=== PATIENT | female | born 1960 | race Caucasian/White ===

== ENCOUNTER 2017-05-29 16:34 | Emergency (ER) | payer SELFPAY ==
[2017-05-29 16:38] VITALS: BP 148/99
--- NOTE | 2017-05-29 17:08 | UC ---
Abdominal Pain Female HPI - HPI Summary HPI Summary: Abdominal pain, cramping, gas, discomfort, frequent very small loose/formed stools starting 3 nights ago. had similar symptoms starting 2 days before pt, but his symptoms resolved within about 48 hours. Pt is just concerned that her recovered quickly and her symptoms are persistent. Has nausea without vomiting but eating helps her belly sx. No blood in stool, denies urinary or vaginal symptoms. Has some low back pain with radiation down the legs. - History of Current Complaint Hx Obtained From: Patient ?: No Onset/Duration: Sudden Onset, Lasting Days Timing: Constant Severity Initially: Moderate Severity Currently: Moderate Location: Diffuse Radiates: Yes Radiates to: Back Character: Aching, Cramping Aggravating Factor(s): Nothing Alleviating Factor(s): Bowel Movement, Other: - eating/drinking Associated Signs and Symptoms: Positive: Decreased Appetite, Nausea. Negative: Diaphoresis, Fever, Cough, Constipation, Blood in Stool, Urinary Symptoms, Vaginal Bleeding, Vomiting <Maggie Lara - Last Filed: 05/29/17 17:03> <Jayda Martinez - Last Filed: 05/29/17 17:44> - History of Current Complaint Chief Complaint: UCGI Stated Complaint: GASTRIC/GAS Time Seen by Provider: 05/29/17 16:43 Allergies/Adverse Reactions: Allergies Allergy/AdvReac Type Severity Reaction Status Date / Time Penicillins Allergy Rash Verified 05/29/17 16:39 PMH/Surg Hx/FS Hx/Imm Hx Previously Healthy: Yes - Surgical History Surgical History: None - Family History Known Family History: Positive: Hypertension - Social History Lives: With Family Alcohol Use: None Substance Use Type: None Smoking Status (MU): Never Smoked Tobacco <Maggie Lara - Last Filed: 05/29/17 17:03> Review of Systems Constitutional: Negative Skin: Negative Eyes: Negative ENT: Negative Respiratory: Negative Cardiovascular: Negative Gastrointestinal: Abdominal Pain, Diarrhea, Nausea Genitourinary: Negative Motor: Negative Neurovascular: Negative Musculoskeletal: Negative Neurological: Negative Psychological: Negative All Other Systems Reviewed And Are Negative: Yes <Maggie Lara - Last Filed: 05/29/17 17:03> Physical Exam Triage Information Reviewed: Yes Appearance: Well-Appearing, No Pain Distress, Well-Nourished Vital Signs: Initial Vital Signs Temp 98.7 F 05/29/17 16:35 Pulse 81 05/29/17 16:35 Resp 12 05/29/17 16:35 BP 148/99 05/29/17 16:35 Pulse Ox 100 05/29/17 16:35 Vital Signs Reviewed: Yes Eye Exam: Normal, Other - PERRL Eyes: Positive: Conjunctiva Clear ENT Exam: Normal ENT: Positive: Normal ENT inspection, Hearing grossly normal, Pharynx normal, TMs normal Dental Exam: Normal Dental: Negative: Gross Decay/Caries @, Abscess @ Neck exam: Normal Neck: Positive: Supple, Nontender, No Lymphadenopathy Respiratory Exam: Normal Respiratory: Positive: Chest non-tender, Lungs clear, Normal breath sounds, No respiratory distress, No accessory muscle use Cardiovascular Exam: Normal Cardiovascular: Positive: RRR, No Murmur Abdomen Description: Positive: Nontender, No Organomegaly, Soft. Negative: Bruit, CVA Tenderness (R), CVA Tenderness (L), Hepatomegaly, McBurney's Point Tenderness, Peritoneal Signs Musculoskeletal Exam: Normal Neurological Exam: Normal Neurological: Positive: Alert Psychological Exam: Normal Skin Exam: Normal <Maggie Lara - Last Filed: 05/29/17 17:03> Vital Signs: Initial Vital Signs Temp 98.7 F 05/29/17 16:35 Pulse 81 05/29/17 16:35 Resp 12 05/29/17 16:35 BP 148/99 05/29/17 16:35 Pulse Ox 100 05/29/17 16:35 <Jayda Martinez - Last Filed: 05/29/17 17:44> Abd Pain Female Course/Dx - Differential Dx/Diagnosis Provider Diagnoses: Acute enteritis <Maggie Lara - Last Filed: 05/29/17 17:03> Discharge <Maggie Lara - Last Filed: 05/29/17 17:03> <Jayda Martinez - Last Filed: 05/29/17 17:44> - Discharge Plan Condition: Stable Disposition: HOME Prescriptions: Dicyclomine CAP* [Bentyl CAP*] 10 mg PO TID PRN #12 cap PRN Reason: cramping Patient Education Materials: Acute Diarrhea (ED) Additional Instructions: As we discussed, I do not see any "red flags" in your symptoms or on exam. I expect your stomach cramping and bloating to normalize within the next 2-3 days (it may take another couple days for your bowel habits to normalize as well), as this is most likely a GI virus. If symptoms persist or worsen, please fill the specimen containers and return to the lab for further testing. If you have fever, worsening pain, pain focused in one area of the belly, bloody stools, or fainting, please go to the emergency department right away. Attestation Statement User Type: Provider - I was available for consult. This patient was seen by the TYRESE. The patient was not presented to, seen by, or examined by me. -Aye <Jayda Martinez - Last Filed: 05/29/17 17:44>
== END 2017-05-29 17:18 | disposition home or self-care (01) ==
LOC: MERGE 16:34 → UCEAST 16:34
DX: K52.9 Noninfective gastroenteritis and colitis, unspecified (principal); Z88.0 Allergy status to penicillin
CPT/HCPCS: 99202; G0463

== ENCOUNTER 2018-06-11 13:40 | Inpatient (IN) | payer OTHER ==
[2018-06-11] MEDS ORDERED: NS 0.9% 1000 ML* 1,000 ML IV ONE (13:58)
[2018-06-11] MEDS ORDERED: Ondansetron ODT TAB* 4 MG PO ONE (13:58)
[2018-06-11] MEDS ORDERED: Morphine VIAL* 10 MG/ML 1 ML VIAL IV ONE (13:58)
[2018-06-11] MEDS ORDERED: ceFAZolin 1 GM in Dextrose (*) 1 GM/50 ML BAG IVPB ONE ×2 (13:58→18:59)
--- NOTE | 2018-06-11 13:58 | ED ---
Lower Extremity - HPI Summary HPI Summary: Pt is a 58 y/o F BIBA c/o RLE pain onset ~1349 this date. Pain is rated a 2/10 and described as an ache, per triage. Assoc. Sx: RLE pain, decreased. Denies: fever. She reports falling backwards down 2 stairs and landed on R leg wrong. Allev. Sx: Pulling knee towards body. She notes having eaten breakfast this AM. Aggr. factors: movement of RLE. Allev. factors: compression of RLE. - History of Current Complaint Chief Complaint: EDExtremityLower Stated Complaint: RT ANKLE Time Seen by Provider: 06/11/18 13:49 Hx Obtained From: Patient Mechanism Of Injury: Fall From Height Of: - 2 stairs Onset of Pain: Immediate Onset/Duration: Still Present Severity Currently: Mild Pain Intensity: 2 Pain Scale Used: 0-10 Numeric Timing: Constant Associated Signs And Symptoms: Positive: Other - POS: RLE pain. Negative: Fever Aggravating Factor(s): Movement Alleviating Factor(s): Other - compression Able to Bear Weight: No - Allergies/Home Medications Allergies/Adverse Reactions: Allergies Allergy/AdvReac Type Severity Reaction Status Date / Time MS Penicillins [Penicillins] Allergy Rash Verified 05/29/17 16:39 PMH/Surg Hx/FS Hx/Imm Hx Endocrine/Hematology History: Denies: Hx Diabetes Cardiovascular History: Denies: Hx Coronary Artery Disease, Hx Hypertension Infectious Disease History: No Infectious Disease History: Denies: Traveled Outside the [place] in Last 30 Days - Family History Known Family History: Positive: Hypertension, Diabetes Negative: Cardiac Disease - Social History Occupation: Employed Full-time Lives: With Family Alcohol Use: Occasionally Substance Use Type: Reports: None Hx Tobacco Use: No Smoking Status (MU): Never Smoked Tobacco Review of Systems Negative: Fever, Chills, Fatigue, Skin Diaphoresis Negative: Photophobia, Blurred Vision, Diplopia, Drainage, Erythema Negative: Epistaxis, Dental Pain, Sore Throat, Ear Ache, Nasal Discharge Negative: Palpitations, Chest Pain Negative: Shortness Of Breath, Cough Negative: Abdominal Pain, Vomiting, Diarrhea, Nausea Negative: burning, dysuria, discharge, frequency, flank pain, hematuria, incontinence, pain, urgency Positive: Decreased ROM - RLE, Other - POS: RLE pain. Negative: Arthralgia, Myalgia, Edema Negative: Rash, Bruising Negative: Headache, Weakness, Paresthesia, Numbness, Slurred Speech Negative: Anxious, Depressed All Other Systems Reviewed And Are Negative: Yes Physical Exam - Summary Physical Exam Summary: Constitutional: Well-developed, Well-nourished, Alert. (-) Distressed Skin: Warm, Dry HENT: Normocephalic; Atraumatic Eyes: Conjunctiva normal Neck: Musculoskeletal ROM normal neck. (-) JVD, (-) Stridor, (-) Tracheal deviation Cardio: Rhythm regular, rate normal, Heart sounds normal; Intact distal pulses; The pedal pulses are 2+ and symmetric. Radial pulses are 2+ and symmetric. (-) Murmur Pulmonary/Chest wall: Effort normal. (-) Respiratory distress, (-) Wheezes, (-) Rales Abd: Soft, (-) epigastric tenderness, (-) Distension, (-) Guarding, (-) Rebound Musculoskeletal: (-) Edema Lymph: (-) Cervical adenopathy Neuro: Alert, Oriented x3 Psych: Mood and affect Normal RLE: medially angulated, medial malleolus open. Triage Information Reviewed: Yes Vital Signs On Initial Exam: Initial Vitals Temp Pulse Resp BP Pulse Ox 98.3 F 68 16 114/72 100 06/11/18 13:47 06/11/18 13:47 06/11/18 13:47 06/11/18 13:47 06/11/18 13:47 Vital Signs Reviewed: Yes Diagnostics - Vital Signs Vital Signs Temp Pulse Resp BP Pulse Ox 06/11/18 13:47 98.3 F 68 16 114/72 100 - Laboratory Result Diagrams: 06/11/18 14:00 06/11/18 14:00 Lab Statement: Any lab studies that have been ordered have been reviewed, and results considered in the medical decision making process. - Radiology Knee XR Xray Interpretation: No Acute Changes - IMPRESSION: No radiographic evidence for traumatic RIGHT knee injury. Radiology Interpretation Completed By: Radiologist - Report has been reviewed by provider and radiologist. - EKG 1408 Cardiac Rate: NL - 65 bpm EKG Rhythm: Sinus Rhythm ST Segment: Normal Ectopy: None Discharge - Sign-Out/Discharge Documenting (check all that apply): Patient Departure - Discharge Plan Condition: Stable Disposition: ADMITTED TO [facility] Referrals: No Primary Care Phys,NOPCP [Primary Care Provider] -
[2018-06-11 14:34] LABS: Hematocrit 39 % (35-47); Hemoglobin 13.2 g/dl (12.0-16.0); Mean Corpuscular HGB Conc 34 g/dl (31-36); Mean Corpuscular Hemoglobin 32 pg (27-31); Mean Corpuscular Volume 96 fL (80-97); Mean Platelet Volume 8.3 um3 (7.4-10.4); Platelet Count 204 10^3/ul (150-450); Red Blood Count 4.08 10^6/ul (4.00-5.40); Red Cell Distribution Width 13 % (10.5-15); White Blood Count 7.1 10^3/ul (3.5-10.8)
[2018-06-11 15:04] LABS: EGFR Non-African American 88.9 (>60)
[2018-06-11] MEDS ORDERED: Magnesium Hydroxide LIQ* 30 ML UDC PO PRN (15:17)
--- NOTE | 2018-06-11 15:25 | RAD ---
Indication: RIGHT knee pain post fall. RIGHT ankle fracture. Comparison: RIGHT ankle exam of the same date. Technique: RIGHT knee: AP and crosstable lateral views. Report: Normal articular alignment. Negative for joint effusion or fracture. Mild osteophytosis and medial joint space narrowing. Unremarkable soft tissue contours. IMPRESSION: #. No radiographic evidence for traumatic RIGHT knee injury.
--- NOTE | 2018-06-11 15:26 | RAD ---
INDICATION: Right ankle injury. TECHNIQUE: 3 views of the right ankle were obtained. FINDINGS: There is a transverse slightly comminuted intra-articular fracture of the distal fibula. The distal fragment is displaced posterior one half shaft diameter and demonstrates posterior and lateral angulation relative the proximal fragment. In addition there is gas within the soft tissues adjacent to the fracture suggestive of an open fracture. There is medial subluxation of the distal tibia relative to the talus. There is a transverse intra-articular fracture of the medial malleolus. The distal fragment is displaced lateral and inferior relative to the proximal fragment. There is gas in the adjacent soft tissues suggestive of an open fracture. IMPRESSION: COMMINUTED DISPLACED ANGULATED BIMALLEOLAR FRACTURE SUBLUXATION. THERE IS GAS IN THE SOFT TISSUES ADJACENT TO BOTH FRACTURES SUGGESTIVE OF OPEN FRACTURES.
--- NOTE | 2018-06-11 15:28 | RAD ---
Indication: RIGHT ankle and lower extremity pain post fall. Ankle fracture. Comparison: Ankle radiographs of the same date documenting a displaced bimalleolar fracture. Technique: AP and crosstable lateral views RIGHT lower leg. REPORT AND IMPRESSION: #. Refer to dedicated ankle report for description of bimalleolar fracture. #. Negative for more proximal fracture of the tibia or fibula. #. Normal alignment at the proximal tibiofibular articulation. #. Distal soft tissue swelling.
[2018-06-11 15:40] LABS: INR 0.88 (0.77-1.02)
--- NOTE | 2018-06-11 15:45 | HP ---
H&P (Free Text) History and Physical: Orthopedic consultation Attending Provider: Dr. Eldon Salazar Date of Consultation: 06/11/18 Date of Admission: 06/11/18 CC: open medial malleolus fracture History: Patient is a 58 year old female with no pertinent past medical history who suffered a mechanical fall at her summer home here in [place] while vacuuming. She fell backwards down two steps resulting in immediate right ankle pain and deformity at 1200 this afternoon. She attempted reduction on her own with some success, such that bone was no longer protruding from her skin. She was immediately unable to bear weight and was brought in by ambulance to [facility]. Her pain is currently well controlled and is localized to the right ankle without radiation. It is better with rest worse with any movement. She has no pain at other joints and reports no other injury. She did not hit her hear or lose consciousness when she fell . She had no shortness of breath, chest pain, dizziness or nausea associated with the fall. Her last meal was at 8 am, she has had nothing to eat or drink since. She has no history of heart attack, stroke, blood clot. Allergies: Penicillin causing rash in childhood Surgical History: none Past medical history: Poison russel, currently on day 4/5 prednisone. No other reported. Family history: No history of adverse effects with anesthesia Social: . [facility] in [facility]. In [place] for the Summer. 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 Nonsmoker, occasional alcohol use. Review of Systems: General: Negative for Fever, Chills, recent illness HEENT: Negative for change in vision, headache, head trauma Cardio: No irregular heartbeats, Chest Pain or history of MS Resp: No Shortness Of Breath or Cough Abd: no Abdominal Pain, Vomiting, Diarrhea, Nausea :no dysuria MSK: Right ankle pain and open fracture Neuro: Sensation intact throughout all extremities without numbness or parasthesias Heme: no history of blood clot Skin: poison russel on prednisone x 4 days last day tomorrow Physical Exam: General: NAD, alert HEENT: NCAT. EOMi, moist mucus membranes Cardio: S1S2 RRR Resp: CTA BL. no wheezes,rales or rhonchi ABD: bowel sounds normoactive in all 4 quadrants. Nontender to palpation, no guarding or rigidity. Upper Extremities: SKin envelope intact, no obvious deformity, nontender to palpation. Active flexion and extension of digits, wrists, elbows without associated pain. Shoulders with nonpainful active forward flexion and abduction. LLE: Skin envelope intact, no obvious deformity, nontender to palpation. Active nonpainful flexion and extension of digits, ankle, knee and hip. RLE: extremity is warm without mottling, erythema or edema. There is a 5 CM linear laceration over the medial ankle with the medial malleolus visible though not protruding. There is obvious valgus angulation of the ankle. ROM ankle not assessed due to excessive pain and obvious open fracture. DP pulse 2+ , capillary refill less than two seconds distally. Sensation intact to light touch throughout the RLE including the dorsum, plantar aspect, medial, lateral and 1st webspace of the right foot. There is no tenderness to palpation of the calf, knee, upper leg or hip. Patient is able to actively flex and extend at the knee and hip without pain. Skin: RLE as stated above, crusted over red papules and pustules of bilateral upper extremities ( poison russel) Vitals: Temp: 98.3 F Heart Rate: 68 bpm Respiratory rate: 16 O2 Sat: 100% Blood Pressure: 114/72 Labs: H&H 13.2/39 Plt: 204 Sodium 138 Potassium: 3.6 Cr: 0.68 INR: 0.88 Diagnostic Studies: Right ankle Xray: FINDINGS: There is a transverse slightly comminuted intra-articular fracture of the distal fibula. The distal fragment is displaced posterior one half shaft diameter and demonstrates posterior and lateral angulation relative the proximal fragment. In addition there is gas within the soft tissues adjacent to the fracture suggestive of an open fracture. There is medial subluxation of the distal tibia relative to the talus. There is a transverse intra-articular fracture of the medial malleolus. The distal fragment is displaced lateral and inferior relative to the proximal fragment. There is gas in the adjacent soft tissues suggestive of an open fracture. IMPRESSION: COMMINUTED DISPLACED ANGULATED BIMALLEOLAR FRACTURE SUBLUXATION. THERE IS GAS IN THE SOFT TISSUES ADJACENT TO BOTH FRACTURES SUGGESTIVE OF OPEN FRACTURES. EKG INTERPRETATION ECG Report Patient Name SILVERIO CALLE Birthdate 1960 Sex F Order Number [id number] Date of ECG 06/11/2018 14:08:09 Interpretation Sinus rhythm.normal P axis, V-rate 60- 99 - NORMAL ECG - Assessment: Open fracture right ankle Plan: Patient agrees to ORIF right ankle. This case was discussed with Dr. Salazar who agrees to bring Ms. Calle to the OR for ORIF right ankle. She can be brought up to the OR pre-op holding area now, She will remain NPO. STAT CBC, BMP, type and screen, INR was ordered. The risks and benefits of surgery including but not limited to infection, wound problems, nerve injury, neuroma, RSD, persistent symptoms, blood clot, failure of surgery and the remote chance of catastrophic complication including loss of limb or were discussed with this patient by Dr Salazar, she elected to proceed.
[2018-06-11] MEDS ORDERED: ROPIVACAINE 5 MG/ML 30 ML BTL (0.5%) ONE (15:55)
[2018-06-11] MEDS ORDERED: Ketorolac INJ* 30 MG/ML 1 ML VIAL ONE (16:00)
[2018-06-11] MEDS ORDERED: fentaNYL* 50 MCG/ML 2 ML VIAL (100 MCG VIAL) ONE (16:00)
[2018-06-11] MEDS ORDERED: Ondansetron INJ* 2 MG/ML VIAL ONE (16:00)
[2018-06-11] MEDS ORDERED: Cisatracurium* 2 MG/ML MDV 5 ML ONE (16:00)
[2018-06-11] MEDS ORDERED: Dexamethasone IV* 4 MG/ML 1 ML (4 MG) ONE (16:00)
[2018-06-11] MEDS ORDERED: Propofol* 10 MG/ML 20 ML BTL IV PUSH ONE (16:00)
[2018-06-11] MEDS ORDERED: KETAMINE HCL* 50 MG/ML 10 ML VIAL ONE (16:00)
[2018-06-11] MEDS ORDERED: Lidocaine 2% PF * 5 ML VIAL ONE (16:00)
[2018-06-11] MEDS ORDERED: Midazolam* 1 MG/ML 5 ML VIAL (5 MG) ONE (16:01)
[2018-06-11] MEDS ORDERED: Famotidine IV* 10 MG/ML 2 ML (20 mg) ONE (17:09)
[2018-06-11] MEDS ORDERED: HYDROmorphone INJ* 0.5 MG/0.5 ML SYRINGE ONE (18:18)
[2018-06-11] MEDS ORDERED: Naloxone* 0.4 MG/ML 1 ML VIAL IV PRN (18:23)
[2018-06-11] MEDS ORDERED: Acetaminophen IV 1GM/100ML * 1,000 MG/100 ML VIAL IVPB ONE (18:23)
[2018-06-11] MEDS ORDERED: HYDROmorphone INJ* 0.5 MG/0.5 ML SYRINGE IV PRN (18:23)
[2018-06-11] MEDS ORDERED: Ondansetron INJ* 2 MG/ML VIAL IV PRN (18:23)
[2018-06-11] MEDS ORDERED: fentaNYL* 50 MCG/ML 2 ML VIAL (100 MCG VIAL) IV PRN (18:23)
[2018-06-11] MEDS ORDERED: diPHENhydraMINE IV* 50 MG/ML 1 ml VIAL (BENADRYL) IV PRN (18:50)
[2018-06-11] MEDS ORDERED: Docusate CAP* 100 MG PO PRN (18:50)
[2018-06-11] MEDS: ceFAZolin 1 GM VIAL(*) 1 GM in NS 0.9% 50 ML* 50 ML IVPB SCH (19:02)
[2018-06-11] MEDS ORDERED: Acetaminophen IV 1GM/100ML * 100 ML ONE (19:10)
[2018-06-11] MEDS ORDERED: Magnesium Hydroxide LIQ* 30 ML UDC PO SCH (21:00)
[2018-06-12] MEDS: ceFAZolin 1 GM VIAL(*) 1 GM in NS 0.9% 50 ML* 50 ML IVPB SCH ×3 (03:57→20:47)
[2018-06-12 06:22] LABS: Hematocrit 35 % (35-47); Hemoglobin 12.2 g/dl (12.0-16.0); Mean Platelet Volume 8.4 um3 (7.4-10.4); Platelet Count 178 10^3/ul (150-450)
[2018-06-12 06:42] LABS: EGFR Non-African American 102.7 (>60)
--- NOTE | 2018-06-12 08:47 | RAD ---
INDICATION: Fall, right ankle fracture COMPARISONS: June 11, 2018 TECHNIQUE: Fluoroscopy was provided for a surgical procedure. Total fluoroscopy time is: 54 seconds FINDINGS: Spot images demonstrate internal fixation of the distal tibia and distal fibula. IMPRESSION: FLUOROSCOPY WAS PROVIDED FOR A SURGICAL PROCEDURE CPT II Codes: G9500
[2018-06-12] MEDS: Magnesium Hydroxide LIQ* 30 ML UDC PO SCH ×2 (09:35→20:46)
--- NOTE | 2018-06-12 09:52 | PN ---
Progress Note - Progress Note Date of Service: 06/12/18 SOAP: Subjective: POD #1 Right ankle ORIF with I&D for open fx. Doing well, no complaints of pain. Denies CP/SOB, f/c or calf pain. Objective: Vitals: Temp Pulse Resp BP Pulse Ox 99.0 F 60 16 100/59 98 06/12/18 07:49 06/12/18 07:49 06/12/18 07:49 06/12/18 07:49 06/12/18 07:49 Gen: A&Ox3, NAD at rest sitting up in bed RLE: Splint C/D/I, +f/e at MTPs, N/V intact Assessment: POD #1 Right ankle ORIF with I&D for open fx Plan: Pt to receive 24 hours of post op IV abx D/C tomorrow Cont NWB RLE, PT/OT
[2018-06-12] MEDS: Enoxaparin(*) 40 MG/0.4 ML SYR SUBCUT SCH (12:33)
[2018-06-12] MEDS: traMADol TAB* 50 MG PO PRN (15:13)
[2018-06-12] MEDS: oxyCODONE TAB* 5 MG TAB PO PRN (20:46)
[2018-06-12] MEDS: Morphine INJ* 2 MG/ML 1 ML SYRINGE (TWO MG - NEW SYRINGE VERSION) IV PRN (23:48)
[2018-06-13] MEDS: ceFAZolin 1 GM VIAL(*) 1 GM in NS 0.9% 50 ML* 50 ML IVPB SCH ×3 (03:26→23:39)
[2018-06-13] MEDS: oxyCODONE TAB* 5 MG TAB PO PRN ×5 (03:31→20:46)
[2018-06-13] MEDS: Morphine INJ* 2 MG/ML 1 ML SYRINGE (TWO MG - NEW SYRINGE VERSION) IV PRN ×2 (05:20→23:28)
[2018-06-13 06:13] LABS: Hematocrit 35 % (35-47); Hemoglobin 12.1 g/dl (12.0-16.0); Mean Platelet Volume 8.3 um3 (7.4-10.4); Platelet Count 163 10^3/ul (150-450)
[2018-06-13] MEDS: Magnesium Hydroxide LIQ* 30 ML UDC PO SCH ×3 (07:07→23:39)
[2018-06-13] MEDS: Acetaminophen TAB* 325 MG PO PRN ×2 (07:53→15:51)
--- NOTE | 2018-06-13 08:50 | PN ---
Progress Note - Progress Note Date of Service: 06/13/18 SOAP: Subjective: POD #2 right ankle ORIF with I&D for open fx. Doing ok, had increased pain through night. Denies CP/SOB, f/c, n/v or calf pain. Objective: Vitals: Temp Pulse Resp BP Pulse Ox 98.9 F 74 14 98/53 98 06/13/18 03:30 06/13/18 03:30 06/13/18 07:42 06/13/18 03:30 06/13/18 03:30 Gen: A&Ox3, NAD at rest laying in bed RLE: Splint C/D/I, +f/e at MTPs, sensation intact, brisk cap refill Assessment: POD #2 Right ankle ORIF with I&D for open fx Plan: Cont IV abx for 48hrs post op NWB RLE with walker Cont PT D/C tomorrow after IV abx course complete
[2018-06-13] MEDS: Enoxaparin(*) 40 MG/0.4 ML SYR SUBCUT SCH (11:57)
[2018-06-13] MEDS: traMADol TAB* 50 MG PO PRN (23:01)
[2018-06-14] MEDS: oxyCODONE TAB* 5 MG TAB PO PRN ×2 (01:26→05:37)
[2018-06-14] MEDS: Acetaminophen TAB* 325 MG PO PRN ×2 (01:26→12:24)
[2018-06-14 05:53] LABS: Hematocrit 36 % (35-47); Hemoglobin 12.5 g/dl (12.0-16.0); Mean Platelet Volume 8.6 um3 (7.4-10.4); Platelet Count 163 10^3/ul (150-450)
--- NOTE | 2018-06-14 07:52 | PN ---
Progress Note - Progress Note Date of Service: 06/14/18 SOAP: Subjective: POD #3 Right ankle ORIF with I&D for open fx. Doing well, ready for d/c home. Pain controlled with meds. Denies CP/SOB, calf pain Objective: Vitals: Temp Pulse Resp BP Pulse Ox 98.8 F 64 16 100/62 97 06/14/18 04:16 06/14/18 04:16 06/14/18 05:37 06/14/18 04:16 06/14/18 04:16 Gen: A&O x3, NAD at rest RLE: Splint C/D/I, +f/e at MTPs, N/V intact Assessment: POD #3 Right ankle ORIF with I&D for open fx Plan: Pt completed 48hrs of IV abx, comfortable for d/c home ASA 325mg q day for DVT ppx NWB RLE F/u with Dr. Salazar 7-10 days post op
[2018-06-14] MEDS: ceFAZolin 1 GM VIAL(*) 1 GM in NS 0.9% 50 ML* 50 ML IVPB SCH (08:00)
[2018-06-14] MEDS: traMADol TAB* 50 MG PO PRN ×2 (08:07→14:03)
[2018-06-14] MEDS: Magnesium Hydroxide LIQ* 30 ML UDC PO SCH (09:23)
--- NOTE | 2018-06-14 09:57 | DS ---
DISCHARGE SUMMARY: DATE OF ADMISSION: 06/11/18 DATE OF DISCHARGE: 06/14/18 PROVIDER: Dr. Eldon Salazar * (DICTATED BY ROSEY JAMES) ADMITTING DIAGNOSIS: Open fracture of the right ankle. DISCHARGE DIAGNOSIS: Open fracture of the right ankle, status post right ankle ORIF with I and D. HISTORY OF PRESENT ILLNESS: Ms. Calle is a 58-year-old healthy female who presented to [facility] Emergency Room on 06/11/18 after a fall. She was noted to have pain and deformity with an open wound at the right ankle. X-rays were taken, she was found to have an open fracture of the right ankle. She was admitted to [facility] at that time for further treatment. HOSPITAL COURSE: On 06/11/18, the patient was admitted to [facility] and underwent a successful right ankle ORIF with irrigation and debridement for fracture. She was splinted and recovered briefly in the postanesthesia care unit. She was transferred to the short-stay surgical unit where she has stayed for 48 hours of IV antibiotics. She has worked with physical therapy and has been doing well and complaint was nonweightbearing. The pain has been well controlled with oral pain medication. She has had no paresthesias or numbness in the toes and she is able to move them easily. Her vital signs have been stable throughout her hospital course. She has not had any fever or signs of infection. On postop day 3, the IV antibiotic course was completed and the patient was found to stable for discharge home. DISCHARGE INSTRUCTIONS: The patient will be nonweightbearing on the right lower extremity with the use of a walker or crutches. She was also offered a knee scooter, which she will call to get a prescription for. She will keep her splint clean and dry until further followup. She will elevate the leg frequently and apply ice as needed for pain. She is understanding to call the office with any questions or concerns. She will go directly to the ER with any chest pain, shortness of breath, fever greater than 101.5 or calf pain. DISCHARGE MEDICATIONS: The patient will use oxycodone 5 mg p.o. q.6 hours p.r.n. pain, Tylenol 650 mg p.o. q.6 hours p.r.n. pain, ibuprofen 600 mg p.o. q.6 hours p.r.n. pain, aspirin 325 mg daily to prevent clots, docusate 100 mg p.o. b.i.d. p.r.n. constipation. All of the patient's questions were answered to her satisfaction. ROSEY JAMES [id number]/[facility] #: [id number] SVITLANA
[2018-06-14] MEDS: Enoxaparin(*) 40 MG/0.4 ML SYR SUBCUT SCH (12:21)
[2018-06-14 14:09] VITALS: BP 117/70
--- NOTE | 2018-06-15 09:45 | OP ---
Operative Report - Blank - Operative Report Date of Operation: 06/11/18 Note: PATIENT: Lo Calle DATE OF : 1960 DATE OF SURGERY: 06/11/2018 SURGEON: Eldon Salazar MD GLUE JOINTER OPERATOR: ROSEY Harvey, whos assistance was necessary for positioning, retraction, help with instrumentation, and closure. ANESTHESIOLOGIST: Dr. Cain PREOPERATIVE DIAGNOSIS: Right Gustilo grade II open bimalleolar ankle fracture- dislocation and disruption of the distal tibia-fibula syndesmosis. POSTOPERATIVE DIAGNOSIS: Right Gustilo grade II open bimalleolar ankle fracture- dislocation and disruption of the distal tibia-fibula syndesmosis. OPERATION: 1. Right open ankle fracture irrigation and debridement 2. Right bimalleolar ankle fracture open reduction and internal fixation. 3. Stress views performed by surgeon utilizing fluoroscopy under anesthesia. ANESTHESIA: GETA IMPLANTS: Arthrex plate and screws TOURNIQUET TIME: Less than two hours with a well-padded thigh tourniquet at 250mmHg SPECIMENS: none ESTIMATED BLOOD LOSS: minimal COMPLICATIONS: none STATUS: Stable from the operating room to the recovery room and then admitted to the hospital. INDICATIONS FOR PROCEDURE: Lo sustained an open right ankle fracture-dislocation. She was brought into the emergency room by ambulance. Both operative and non operative treatment alternatives were reviewed. Further, the nature and risks of surgery were reviewed in careful detail in the pre-operative holding area. Our discussions regarding the risks of surgery included, but were not limited to, infection, wound problems, nerve injury, neuroma, RSD, persistent symptoms, blood clot, nonunion, malunion, post-traumatic arthritis, hardware failure, failure of the surgery, and even the remote chance of catastrophic complication , including loss of limb. DESCRIPTION OF PROCEDURE: The patient was seen in the preoperative holding unit and informed written consent was obtained. The appropriate extremity was marked. The patient was then brought to the operating room and carefully positioned on the operating room table. Anesthesia was induced. All bony prominences were padded with great care. A well-padded thigh tourniquet was placed. A chlorhexidine based pre- scrub was performed followed by a betadine prep and drape in standard sterile fashion. A surgical safety pause was then conducted in which we confirmed the appropriate patient, extremity, planned procedure, availability of equipment, indication and administration of prophylactic antibiotics, and DVT prophylaxis in the form of a compression boot on the non-surgical extremity. I began with Esmarch exsanguination of the limb and inflated the tourniquet. I began by performing a thorough irrigation and debridement of the medial ankle wound, which measured 5 cm in length. I debrided any nonviable tissue in the subcutaneous fascial and periosteal layers. There was no gross contamination of the wound. The wound was then thoroughly irrigated with sterile saline and cystoscopy tubing. I then extended the anterior aspect of the wound distally to help expose the fracture site for open reduction and internal fixation. Reduction of the medial malleolar fracture was obtained with a pointed reduction clamp. I placed guidewires for 4.0 mm cannulated screws. I confirmed the position of the guidewires fluoroscopically. I then overdrilled both wires and placed two partially threaded 4.0 mm cannulated screws. I then utilized a laterally based incision overlying the distal fibula. Great care was taken to protect the superficial peroneal nerve, which was not visualized within the field of view. I dissected down through the soft tissue layers to expose the distal fibula. I then exposed the fracture. There was substantial comminution at the fracture site. Some of these comminuted pieces were quite small. Because of this, an anatomic reduction at the fracture site was not possible. I placed an anatomic plate distally at the fracture and then bridged the fracture site. The small pieces of bone at the fracture site were reduced as well as they could be. The syndesmosis was grossly disrupted. I confirmed this fluoroscopically with cotton testing. Therefore, I manually reduced the syndesmosis and placed two trans-syndesmotic screws. Final fluoroscopic images were then obtained. At this point, we irrigated copiously and then closed the wounds in layers meticulously utilizing 3-0 Monocryl for the deep and subdermal layers and skin donovan laterally, and 3-0 nylon medially for the skin. A sterile dressing was then applied followed by a splint with the ankle in a neutral position. The patient was then awakened from anesthesia and transferred to the recovery room in stable condition. There were no complications. All needle and sponge counts were correct at the end of the case. This procedure required substantially more work than is typically needed for a bimalleolar ankle fracture. Given the degree of comminution of the distal fibula, reduction was substantially more difficult. Ensuring the yazdanism of length, alignment, and rotation was also substantially more difficult. All of this led to increased intensity, time, and difficulty of the procedure. ATTESTATION: I attest I was present and scrubbed and performed the critical portions of the procedure myself. POSTOPERATIVE PLAN: The postop plan is for [id number] for an anticipated duration of 8 weeks. Follow-up will be in 2 weeks.
== END 2018-06-14 15:01 | disposition home or self-care (01) | DRG 313 ==
LOC: ED 13:40 → MED 15:31 → UNDOADMIN 15:31 → OR 15:45 → SSU 19:07
PROVIDERS: ADMIT Family Medicine; ATTEND Orthopaedic Surgery
PROC: 0QSG04Z Reposition Right Tibia with Internal Fixation Device, Open Approach (ICD-10-PCS; 2018-06-11)
PROC: 0QSJ04Z Reposition Right Fibula with Internal Fixation Device, Open Approach (ICD-10-PCS; principal; 2018-06-11 16:00)
DX: S93.431A Sprain of tibiofibular ligament of right ankle, initial encounter (principal); S82.841B Displaced bimalleolar fracture of right lower leg, initial encounter for open fracture type I or II; L23.7 Allergic contact dermatitis due to plants, except food; W10.8XXA Fall (on) (from) other stairs and steps, initial encounter; Y92.009 Unspecified place in unspecified non-institutional (private) residence as the place of occurrence of the external cause; Z88.0 Allergy status to penicillin
CPT/HCPCS: 36415; 76000; 80048; 80053; 85014; 85018; 85027; 85049; 85610; 86703; 86707; 86803; 86850; 86900; 86901; 87350; 93005; 99285; A9270-GY; J0690; J1100; J1170; J1650; J1885; J2250; J2270; J2405; J2704; J2795; J3010